=== PATIENT | female | born 1995 | race Caucasian/White ===

== ENCOUNTER → 2022-09-28 09:10 | Outpatient (BNVA) | payer OTHER, SELFPAY | PROVIDERS: Visit Provider Advanced Practice Midwife | DX: Z34.90 Encounter for supervision of normal pregnancy, unspecified, unspecified trimester (principal); Z3A.00 Weeks of gestation of pregnancy not specified | CPT/HCPCS: 81025; 99202 ==

== ENCOUNTER 2022-09-28 10:42 | Outpatient (REF) | payer OTHER, SELFPAY ==
--- NOTE | ~2022-09-28 | US_ITS ---
EXAMINATION: US OBSTETRICAL ULTRASOUND CLINICAL INFORMATION: IUD missing. Normal . COMPARISON: None. LMP: 08/11/2022. Gestational age by maternal dates is by dates is 6 weeks 6 days. Estimated date of delivery by maternal dates is 05/18/2023. TECHNIQUE: Transabdominal and transvaginal first trimester OB ultrasound FINDINGS: The uterus is normal in size and shape. There is an intrauterine gestational sac and yolk sac. No pole is seen. Mean sac diameter measures 0.6 cm which would suggest gestational age 5 weeks 1 day. No IUD is seen. The right maternal ovary is normal and measures 2.7 x 1.8 x 2.1 cm. The left maternal ovary measures 3.7 x 2.4 x 2.8 cm. There is a 1.7 x 1.6 x 2 cm simple cyst and a 1.5 x 1.3 x 1.3 cm complex cyst. There is no fluid in the pelvis. US/US OB pelvic and transvaginal IMPRESSION: Intrauterine gestational sac and yolk sac. No pole seen. This is probably due to early gestational age. Mean sac diameter suggests gestational age of 5 weeks 1 day. No IUD seen.
== END 2022-09-28 10:43 | disposition home or self-care (01) ==
LOC: HO.US 10:42
PROVIDERS: Visit Provider Advanced Practice Midwife
DX: Z34.91 Encounter for supervision of normal pregnancy, unspecified, first trimester (principal); Z3A.01 Less than 8 weeks gestation of pregnancy
CPT/HCPCS: 76801; 76817

== ENCOUNTER 2022-10-19 15:02 | Outpatient (REF) | payer OTHER, SELFPAY ==
--- NOTE | ~2022-10-19 | US_ITS ---
EXAMINATION: US OBSTETRICAL ULTRASOUND CLINICAL INFORMATION: Follow-up IUP COMPARISON: Previous exam 09/28/2022. LMP: 08/11/2022. Gestational age by maternal dates is 9 weeks 6 days. Estimated date of delivery by maternal dates is 05/18/2023. TECHNIQUE: Transabdominal first trimester OB ultrasound FINDINGS: There is a single intrauterine gestational sac with visible yolk sac, embryo/fetus, and cardiac activity. There is no significant subchorionic hemorrhage or hematoma. HR: 176 beats per minute. CRL (crown rump length): 1.78 cm (8 weeks 2 days +/- 4 days). LENORA (estimated date of delivery): 05/29/2022 +/- 4 days. MATERNAL ADNEXA: The right maternal ovary measures 2.5 x 1.8 x 1.3 cm. The left maternal ovary measures 2.5 x 2.1 x 1.7 cm. There is no significant maternal adnexal mass. No maternal pelvic ascites. US/US OB <= 14 weeks fetus IMPRESSION: 1. Single intrauterine gestation with ultrasound gestational age of 8 weeks 2 days +/- 4 days. 2. Estimated date of delivery is 05/29/2023 +/- 4 days. 3. No maternal adnexal mass or pelvic ascites.
== END 2022-10-19 15:03 | disposition home or self-care (01) ==
LOC: HO.US 15:02
PROVIDERS: Visit Provider Advanced Practice Midwife
DX: Z34.91 Encounter for supervision of normal pregnancy, unspecified, first trimester (principal); Z3A.09 9 weeks gestation of pregnancy
CPT/HCPCS: 76801

== ENCOUNTER → 2022-11-11 09:46 | Outpatient (BNVA) | payer OTHER, SELFPAY | PROVIDERS: Visit Provider Advanced Practice Midwife | DX: Z34.81 Encounter for supervision of other normal pregnancy, first trimester (principal); Z3A.13 13 weeks gestation of pregnancy | CPT/HCPCS: 99212 ==

== ENCOUNTER 2022-11-14 14:58 | Outpatient (REF) | payer OTHER, SELFPAY ==
[2022-11-15 04:34] LABS: CT PCR NOT DETECTED (Not Detect.); NG PCR NOT DETECTED (Not Detect.)
[2022-11-15 09:16] LABS: BV Int Neg Control Negative (Negative); BV Int Pos Control Positive (Positive)
== END 2022-11-14 14:59 | disposition home or self-care (01) ==
LOC: HO.LNP 14:58
PROVIDERS: Visit Provider Advanced Practice Midwife
DX: O26.91 Pregnancy related conditions, unspecified, first trimester (principal); Z3A.12 12 weeks gestation of pregnancy
CPT/HCPCS: 81003; 87480; 87491; 87510; 87591; 87660; 88142; 99212

== ENCOUNTER 2022-11-14 15:30 | Outpatient (REF) | payer OTHER, SELFPAY ==
--- NOTE | ~2022-11-14 | US_ITS ---
EXAMINATION: US OBSTETRICAL ULTRASOUND CLINICAL INFORMATION: Question heart rate. Unable to auscultate heart rate COMPARISON: 10/19/2022. LMP: Not provided. Gestational age by maternal dates is not provided. Estimated date of delivery by maternal dates is not provided. TECHNIQUE: Ultrasound of the maternal pelvis is performed using transabdominal transducer. M-mode Doppler is also performed. FINDINGS: There is a single intrauterine gestational sac with visible yolk sac, embryo/fetus, and cardiac activity. There is no significant subchorionic hemorrhage or hematoma. Amniotic fluid volume is within normal limits for gestational age. HR: 170 beats per minute. CRL (crown rump length): 5.8 cm (12 weeks 3 days +/- 4 days). LENORA (estimated date of delivery): 05/26/2023 +/- 4 days. Ultrasound LENORA 05/29/2022 on ultrasound 10/19/2022. There has been 3 days greater than expected interval growth. MATERNAL ADNEXA: The right maternal ovary measures 2.9 x 2.4 x 1.7 cm. No right adnexal mass The left maternal ovary measures 2.7 x 2.7 x 2.1 cm. There is no significant maternal adnexal mass. No maternal pelvic ascites. US/US OB <= 14 weeks fetus IMPRESSION: 1. Single intrauterine gestation with ultrasound gestational age of 12 weeks 3 days +/- 4 days. 2. Estimated date of delivery is 05/26/2023 +/- 4 days. There has been 3 days greater than expected interval growth since the most recent prior obstetrical sonogram. 3. No maternal adnexal mass or pelvic ascites.
== END 2022-11-14 15:31 | disposition home or self-care (01) ==
LOC: HO.US 15:30
PROVIDERS: Visit Provider Advanced Practice Midwife
DX: O26.91 Pregnancy related conditions, unspecified, first trimester (principal); Z3A.12 12 weeks gestation of pregnancy
CPT/HCPCS: 76801

== ENCOUNTER 2022-12-15 13:06 | Outpatient (REF) | payer OTHER, SELFPAY ==
[2022-12-15 14:21] LABS: Hemoglobin 14.3 g/dl (12.0-16.0); Mean Corpuscular HGB Conc 34.9 g/dl (31.0-35.0); Mean Corpuscular Hemoglobin 30.2 pg (27.0-33.0); Mean Corpuscular Volume 86.7 fL (80.0-98.0); Mean Platelet Volume 11.3 fL (9.4-12.3); Platelet Count 133 X10*3/uL (160-400); Red Blood Count 4.73 X10*6/uL (4.20-5.50); Red Cell Distribution Width 13.2 % (11.0-16.0); White Blood Count 11.5 X10*3/uL (4.8-10.8)
[2022-12-15 15:14] LABS: Amphetamine Screen Urine Not Detected (Not Detect); Barbiturates, Urine Not Detected (Not Detect); Benzodiazepines Screen Urine Not Detected (Not Detect); Cannabinoid Screen Urine POSITIVE (Not Detect); Cocaine Screen Urine Not Detected (Not Detect); Fentanyl, urine Not Detected (Not Detect); Opiate Screen Urine Not Detected (Not Detect); Phencyclidine Screen Urine Not Detected (Not Detect)
[2022-12-15 15:21] LABS: Syphilis Screen Nonreactive (Nonreactive)
[2022-12-16 10:58] LABS: Rubella IgG Antibody 4.03 Index
[2022-12-17 08:51] LABS: HBsAGNum1 0.35 S/CO (0.00-0.99); Hepatitis B Surface Antigen Negative (Negative); ~HepC Num1 0.11 S/CO (0.00-0.79); ~Hepatitis C Antibody Nonreactive (Nonreactive)
[2022-12-17 09:39] LABS: HIV AB/AG Nonreactive (Nonreactive); HIV Num 1 0.06 S/CO (0.00-0.99)
== END 2022-12-15 13:07 | disposition home or self-care (01) ==
LOC: HO.LAB 13:06
PROVIDERS: Visit Provider Advanced Practice Midwife
DX: Z34.92 Encounter for supervision of normal pregnancy, unspecified, second trimester (principal); Z3A.16 16 weeks gestation of pregnancy
CPT/HCPCS: 80307; 81003; 85027; 86762; 86780; 86787; 86803; 86850; 86900; 87086; 87340; 87389; 99212

== ENCOUNTER → 2025-05-18 21:38 | Outpatient (BNV) | payer OTHER, SELFPAY | PROVIDERS: Emergency Provider Internal Medicine; PCP Physician Assistant; Visit Provider Radiology Diagnostic Radiology | DX: M79.604 Pain in right leg (principal) | CPT/HCPCS: 73590 ==

== ENCOUNTER 2025-05-18 21:58 | Emergency (ER) | payer OTHER, SELFPAY ==
--- NOTE | ~2025-05-18 | XR_ITS ---
CLINICAL HISTORY: infection 2 view right tibia-fibula Comparison: None provided Findings No acute fracture. No joint effusion. No significant arthritic change. No radiopaque foreign body. Mildly diffuse soft tissue swelling. IMPRESSION: No acute fracture. This document has been electronically signed by: Papa Griffin MD on 05/18/2025 23:10:24
[2025-05-18 22:10] VITALS: BP 121/76; PULSE 85; RESP 18; TEMP 36.9; O2SAT 97; BMI 22.9
--- NOTE | 2025-05-18 22:51 | ED.EXTPRO ---
HPI - Extremity Problem General Chief complaint: Extremity Problem Stated complaint: right leg infection Time Seen by Provider: 05/18/25 22:51 Source: patient Mode of arrival: ambulatory Limitations: no limitations History of Present Illness ED Provider: HPI Narrative: Patient apparently had tattoo on her right leg about 4 days ago does have history of folliculitis noticed increased redness and follicular rash around it patient went to urgent care center next day of the tattoo and prescribe cephalexin twice a day but now follicular rash is getting worse and spreading more no fever no chills on arrival does have increased pain Related Data Previous Rx's ?Medication ?Instructions ?Recorded doxylamine succinate 25 mg tablet 25 mg PO BEDTIME PRN sleep #30 tabs 10/26/22 (Unisom (doxylamine)) vitamin with calcium 1 tab PO DAILY #90 tabs 10/26/22 no.72-iron 27 mg-folic acid 1 mg tablet ( Vitamins Plus Low Iron) pyridoxine (vitamin B6) 25 mg 25 mg PO TID #90 tabs 10/26/22 tablet famotidine 20 mg tablet (Pepcid) 20 mg PO BID 4 weeks #56 tabs 12/15/22 cephalexin 500 mg capsule 500 mg PO QID 10 days #40 caps 05/19/25 doxycycline hyclate 100 mg tablet 100 mg PO BID #20 tabs 05/19/25 mupirocin 2 % topical ointment 1 appl topical BID #22 grams 05/19/25 (Centany) Allergies Allergy/AdvReac Type Severity Reaction Status Date / Time No Known Allergies (No Known Allergy Verified 05/18/25 22:13 Allergies*) Review of Systems Review of Systems: Yes all other systems are reviewed and are negative [facility] Family History Family History Mother Hx of seizure disorder Father COPD (chronic obstructive pulmonary disease) History of heart attack Pacemaker Social History Social History Household Members: Significant Other and Children Housing: House Are you a primary after school caregiver to a significant other at home: No Do you presently have visiting nurse or other home services: No Alcohol intake: never Patient Tobacco Use Status: Former Tobacco user Substance Use Type: Marijuana Advance Directives: No Advance Directives Information Provided: No Do you have a plan to hurt others: No Plan Physical Exam Vital Signs: Vital Signs: Last Vital Signs Temp 98.2 F 05/19/25 00:35 Pulse 76 05/19/25 00:35 Resp 16 05/19/25 00:35 BP 101/51 L 05/19/25 00:35 Pulse Ox 96 05/19/25 00:35 O2 Del Method Room Air 05/19/25 00:35 BMI result Body Mass Index 22.9 Appearance: Alert. Oriented X3. No acute distress. ENT: Pharynx normal Oral Mucosa moist tympanic membrane intact no erythema, Neck: Normal inspection. Neck supple. CVS: Normal heart rate and rhythm. Pulses normal. Respiratory: No respiratory distress. Equal air entry bilateral, no wheezing/rales/rhonchi Abd: soft, not tender Skin: Skin warm and dry. Right leg with follicular lesions and cellulitic lesions around the tattoo area Extremities: No lower extremity edema, no calf tenderness Neuro: Oriented X 3. Medications Administered Discontinued Medications Generic Name Dose Route Start Last Admin Trade Name Freq PRN Reason Stop Dose Admin Doxycycline Monohydrate 100 mg 05/18/25 23:06 05/18/25 23:20 Doxycycline Monohydrate 100 Mg Capsule PO 05/18/25 23:07 100 mg ONCE ONE Administration Medical Decision Making Medical Decision Making [facility] Narrative: Patient with infected right calf tattoo with cellulitic changes will prescribe doxycycline cephalexin no signs of deeper abscess Lab Data [facility] Lab Attestation statement: I reviewed the patient's lab results. 05/18/25 23:36 05/18/25 23:36 Labs: Lab Results 05/18/25 Range/Units 23:36 WBC 8.5 (4.8-10.8) X10*3/uL RBC 4.04 L (4.20-5.50) X10*6/uL Hgb 12.0 (12.0-16.0) g/dl Hct 37.5 (37.0-47.0) % MCV 92.8 (80.0-98.0) fL MCH 29.7 (27.0-33.0) pg MCHC 32.0 (31.0-35.0) g/dl RDW 13.0 (11.0-16.0) % Plt Count 118 L (160-400) X10*3/uL MPV 11.5 (9.4-12.3) fL Immature Gran % (Auto) 0.4 (0.0-0.4) % Neut % (Auto) 66.5 (45-73) % Lymph % (Auto) 24.4 (20-40) % [place] % (Auto) 6.9 (2-11) % Eos % (Auto) 1.2 (0-4) % Baso % (Auto) 0.6 (0-2) % Lymph # (Auto) 2.1 (1.2-4.9) X10*3/uL [place] # (Auto) 0.6 (0.1-1.2) X10*3/uL Eos # (Auto) 0.1 (0.0-0.4) X10*3/uL Baso # (Auto) 0.1 (0.0-0.2) X10*3/uL Abs Immat Gran (auto) 0.03 (0.00-0.03) X10*3/uL Absolute Neuts (auto) 5.7 (2.0-8.3) x10*3/uL Absolute Nucleated RBC 0.000 (0.0-0.012) X10*3/uL Nucleated RBC % (auto) 0.0 (0.0-0.2) /100WBC Smear Tech's Comments VERIFIED Sodium 142 (135-145) mmol/L Potassium 3.7 (3.3-5.1) mmol/L Chloride 105 (96-108) mmol/L Carbon Dioxide 27 (22-29) mmol/L Anion Gap 14 (12-20) BUN 14 (9-16) mg/dL Creatinine 0.78 (0.5-1.4) mg/dL Estim Creat Clear Calc 96.6 Estimated GFR > 60 Random Glucose 105 (60-115) mg/dL Calcium 8.9 (8.4-10.2) mg/dL Total Bilirubin 0.3 (0.0-1.0) mg/dL AST 19 (5-31) U/L ALT 23 (0-31) U/L Alkaline Phosphatase 42 (39-117) U/L Total Protein 6.4 L (6.5-8.0) g/dL Albumin 4.0 (3.5-5.0) g/dL Discharge Plan Discharge Clinical Impression: Folliculitis, Cellulitis Patient Disposition: Home, Self-Care Instructions: Cellulitis (ED), Folliculitis (ED) Additional Instructions: Take antibiotic as prescribed Report to the ER if worsening of the swelling or redness Changes dose of cephalexin to 4 times a day started on doxycycline Prescriptions: New cephalexin 500 mg capsule 500 mg PO QID 10 Days Qty: 40 0RF doxycycline hyclate 100 mg tablet 100 mg PO BID Qty: 20 0RF mupirocin [Centany] 2 % ointment 1 appl topical BID Qty: 22 0RF No Action famotidine [Pepcid] 20 mg tablet 20 mg PO BID 28 Days Qty: 56 2RF Vitamin Plus Low Iron 27 mg iron- 1 mg tablet 1 tab PO DAILY Qty: 90 5RF pyridoxine (vitamin B6) 25 mg tablet 25 mg PO TID Qty: 90 1RF Unisom (doxylamine) 25 mg tablet 25 mg PO BEDTIME PRN (Reason: sleep) Qty: 30 0RF Stand Alone Forms: Work/School Release Interventions: ED Discharge Assessment Last Done: 05/19/25 00:35 Discharge Date/Time: 05/19/25 00:36 Print Language: Kenyan
--- OUTSIDE RECORDS SUMMARY | 2025-05-18 23:14 | XMS_ITS | Encounter Summary ---
Author Organization [facility] Address [address] [place], [place] [id number] Phone Care Team Providers Care Travel Agent Name Role Phone Veronica Heath MD Primary Care Provider Unava ilable Encounter Details Date Type Department Care Team (Late st Contact Info) Description 12/30/[address] [facility] Family Medicine [address] [place], [place] [id number] Family Medicine, Physician [facility] [place] [address] Social History Tobacco Use Types Packs/Day Years Used Date Smoking Tobacco: Never Assessed Comments Unknown Sex and Gender Information Value Date Recorded Sex Assigned at Not on file Legal Sex Female 5:21 PM EDT Gender Identity Not on file Sexual Orientation Not on file documented as of this encounter Plan of Treatment Not on file documented as of this encounter Visit Diagnoses Not on filedocumented in this encounter Care Teams Travel Agent Relationship Specialty Start Date End Date Veronica Heath MD PCP - General 07/07/17 02/14/24 documented as of this encounter
[2025-05-18] MEDS: Doxycycline Monohydrate 100 MG CAPSULE PO (23:20)
[2025-05-18 23:23] VITALS: BP 101/51; PULSE 76; RESP 16; O2SAT 96
[2025-05-18 23:44] LABS: Basophils Absolute Auto 0.1 X10*3/uL (0.0-0.2); Basophils Percent Auto 0.6 % (0-2); Eosinophils Absolute Auto 0.1 X10*3/uL (0.0-0.4); Eosinophils Percent Auto 1.2 % (0-4); Hematocrit 37.5 % (37.0-47.0); Imm Gran Abs Auto 0.03 X10*3/uL (0.00-0.03); Imm Gran Pct Auto 0.4 % (0.0-0.4); Lymphocytes Absolute Auto 2.1 X10*3/uL (1.2-4.9); Lymphocytes Percent Auto 24.4 % (20-40); MANUAL DIFF FLAG SCAN; Mean Corpuscular Hemoglobin 29.7 pg (27.0-33.0); Mean Corpuscular Volume 92.8 fL (80.0-98.0); Mean Platelet Volume 11.5 fL (9.4-12.3); Monocytes Absolute Auto 0.6 X10*3/uL (0.1-1.2); Monocytes Percent Auto 6.9 % (2-11); Neutrophils Absolute Auto 5.7 x10*3/uL (2.0-8.3); Neutrophils Percent Auto 66.5 % (45-73); PLT CLUMP 1; Red Blood Count 4.04 X10*6/uL (4.20-5.50); SCAN SMEAR FLAG 1
[2025-05-18 23:54] LABS: Alanine Aminotransferase 23 U/L (0-31); Alkaline Phosphatase 42 U/L (39-117); Anion Gap 14 (12-20); Aspartate Amino Transferase 19 U/L (5-31); Bilirubin Total 0.3 mg/dL (0.0-1.0); Blood Urea Nitrogen 14 mg/dL (9-16); Calcium 8.9 mg/dL (8.4-10.2); Carbon Dioxide 27 mmol/L (22-29); Chloride 105 mmol/L (96-108); Creatinine Clr Calc Pharmacy 96.6; Estimated Glomerular Filt Rate > 60; Glucose Random 105 mg/dL (60-115); Potassium 3.7 mmol/L (3.3-5.1); Sodium 142 mmol/L (135-145); Total Protein 6.4 g/dL (6.5-8.0)
[2025-05-19 00:16] LABS: White Blood Count 8.5 X10*3/uL (4.8-10.8)
[2025-05-19 00:17] LABS: Platelet Count 118 X10*3/uL (160-400); SLIDE REVIEW VERIFIED
[2025-05-19 00:35] VITALS: BP 101/51; PULSE 76; RESP 16; TEMP 36.8; O2SAT 96
== END 2025-05-19 00:36 | disposition home or self-care (01) ==
PROVIDERS: Emergency Provider Internal Medicine; PCP Physician Assistant
DX: L03.115 Cellulitis of right lower limb (principal); M79.604 Pain in right leg; Z87.891 Personal history of nicotine dependence
CPT/HCPCS: 36415; 73590; 80053; 85025; 87070; 87077; 87186; 87205; 99283